=== PATIENT | male | born 1995 | race Caucasian/White ===

== ENCOUNTER 2017-09-22 13:31 | Emergency (ER) | payer OTHER ==
[~2017-09-22] VITALS: Ht 175.3 cm; Wt 66.0 kg
[~2017-09-22 13:31] MED LIST: AMOXICILLIN500 MG OR; NO HOME MEDS; ZOFRAN ODT4 MG PO
[2017-09-22] MEDS ORDERED: TRAMADOL HCL50 MG PO (13:50)
[2017-09-22] MEDS ORDERED: AMOXICILLIN500 MG PO (13:50)
[2017-09-22 15:18] LABS: HEMATOCRIT 42.7 % (39.0-50.0); HEMOGLOBIN 15.5 g/dl (14.0-18.0); IMMATURE GRANULOCYTES 0.4 % (0.0-1.0); MEAN CELL VOLUME 85.4 fL CALC (80.0-100.0); MEAN CORPUSCULAR HGB CONC 36.3 g/L CALC (32.0-36.0); NEUT# 7.36 thou/uL (1.82-7.42); RED CELL DISTRI WIDTH 11.9 % (11.5-15.5)
[2017-09-22 15:35] LABS: ALBUMIN 4.5 g/dL (3.2-5.0); ALKALINE PHOSPHATASE 57 u/l (38-126); ANION GAP 15 (6-22 (CALC)); BILIRUBIN, TOTAL 1.7 mg/dL (0.0-1.4); BUN 15 mg/dL (9-20); BUN/CREATININE RATIO 19 (12-20 (CALC)); CALCIUM 9.6 mg/dL (8.4-10.2); CARBON DIOXIDE 28 mmol/l (22-30); CHLORIDE 102 mmol/l (95-108); CREATININE 0.8 mg/dL (0.7-1.3); GFR > 60 ML/MIN (>=60 (CALC)); GFR FOR AFR.AMER. > 60 ML/MIN (>=60 (CALC)); GLUCOSE 106 mg/dL (75-110); POTASSIUM 4.6 mmol/l (3.5-5.1); SGOT/AST 25 u/l (17-59); SGPT/ALT 30 u/l (21-72); SODIUM 141 mmol/l (137-146); TOTAL PROTEIN 6.9 g/dL (6.3-8.2)
[2017-09-22] MEDS ORDERED: ZOFRAN ODT4 MG PO (16:05)
[2017-09-22 17:11] VITALS: BP 121/68
== END 2017-09-22 17:17 | disposition home or self-care (01) | DRG 159 ==
LOC: ED 13:31
PROVIDERS: Emergency Medicine
DX: K04.7 Periapical abscess without sinus (principal); J02.9 Acute pharyngitis, unspecified; R11.10 Vomiting, unspecified; R50.9 Fever, unspecified

== ENCOUNTER 2018-02-23 12:41 | Emergency (ER) | payer OTHER ==
[~2018-02-23] VITALS: Ht 175.3 cm; Wt 64.8 kg
[~2018-02-23 12:41] MED LIST changes: +AMOXICILLIN500 MG PO; +TRAMADOL HCL50 MG PO
[2018-02-23 14:45] VITALS: BP 129/85
[2018-02-23] MEDS ORDERED: PENICILLN VK500 M1 PO (14:47)
[2018-02-23] MEDS ORDERED: MOTRIN400 MG PO (14:47)
== END 2018-02-23 14:45 | disposition home or self-care (01) | DRG 159 ==
LOC: ED 12:41
DX: K03.81 Cracked tooth (principal); F17.220 Nicotine dependence, chewing tobacco, uncomplicated

== ENCOUNTER 2022-01-21 08:32 | Emergency (ER) | payer SELFPAY ==
[~2022-01-21] VITALS: Ht 175.3 cm; Wt 91.0 kg
[~2022-01-21 08:32] MED LIST changes: +MOTRIN400 MG PO; +PENICILLN VK500 M1 PO
[2022-01-21 08:42] VITALS: BP 130/82
[2022-01-21 08:45] VITALS: BP 127/79
[2022-01-21] MEDS ORDERED: OFLOXACIN0.3 % OD (08:59)
[2022-01-21] MEDS ORDERED: DOXYCYCL HYC100 M4 PO (08:59)
[2022-01-21 09:08] VITALS: BP 127/79
== END 2022-01-21 09:20 | disposition home or self-care (01) | DRG 125 ==
LOC: ED 08:32
DX: H00.013 Hordeolum externum right eye, unspecified eyelid (principal); F17.200 Nicotine dependence, unspecified, uncomplicated

== ENCOUNTER 2022-04-08 12:10 | Emergency (ER) | payer SELFPAY ==
[2022-04-08] VITALS (9 sets, daily range): BP systolic 105–123; BP diastolic 68–83
[~2022-04-08] VITALS: Ht 182.9 cm; Wt 86.3 kg
[~2022-04-08 12:10] MED LIST changes: +DOXYCYCL HYC100 M4 PO; +OFLOXACIN0.3 % OD
[2022-04-08 12:55] LABS: HEMATOCRIT 47.5 % (39.0-50.0); HEMOGLOBIN 16.4 g/dl (14.0-18.0); IMMATURE GRANULOCYTES 0.1 % (0.0-5.0); MEAN CELL VOLUME 89.3 fL CALC (80.0-100.0); MEAN CORPUSCULAR HGB 30.8 pG CALC (26.0-32.0); MEAN CORPUSCULAR HGB CONC 34.5 g/dL CAL (32.0-36.0); NEUT# 6.99 thou/uL (1.82-7.42); RED BLOOD COUNT 5.32 mill/uL (4.70-6.10); RED CELL DISTRI WIDTH 11.8 % (11.5-15.5)
[2022-04-08 13:18] LABS: ALBUMIN 4.6 g/dL (3.2-5.0); ALKALINE PHOSPHATASE 55 u/l (38-126); ANION GAP 13 (6-22 (CALC)); BUN 14 mg/dL (9-20); BUN/CREATININE RATIO 16 (12-20 (CALC)); CARBON DIOXIDE 25 mmol/l (22-30); CHLORIDE 105 mmol/l (95-108); CREATININE 0.8 mg/dL (0.7-1.3); GFR FOR AFR.AMER. > 60 ML/MIN (>=60 (CALC)); GFR OTHER RACES > 60 ML/MIN (>=60 (CALC)); LIPASE 76 u/l (23-300); POTASSIUM 4.2 mmol/l (3.5-5.1); SGOT/AST 27 u/l (17-59); SODIUM 139 mmol/l (137-146); TOTAL PROTEIN 7.7 g/dL (6.3-8.2)
[2022-04-08 13:29] LABS: BILIRUBIN, TOTAL 0.7 mg/dL (0.0-1.4)
[2022-04-08] MEDS ORDERED: ZOFRAN4 MG/TAB PO (13:59)
== END 2022-04-08 14:19 | disposition home or self-care (01) | DRG 392 ==
LOC: ED 12:10
PROVIDERS: Family Medicine
DX: K52.9 Noninfective gastroenteritis and colitis, unspecified (principal); F17.200 Nicotine dependence, unspecified, uncomplicated; Z20.822 Contact with and (suspected) exposure to COVID-19

== ENCOUNTER 2022-06-29 11:32 | Emergency (ER) | payer BC ==
[~2022-06-29] VITALS: Ht 182.9 cm; Wt 86.3 kg
[~2022-06-29 11:32] MED LIST changes: +ZOFRAN4 MG/TAB PO
[2022-06-29 12:51] LABS: HEMATOCRIT 40.5 % (39.0-50.0); HEMOGLOBIN 14.7 g/dl (14.0-18.0); IMMATURE GRANULOCYTES 0.7 % (0.0-5.0); MEAN CELL VOLUME 84.9 fL CALC (80.0-100.0); MEAN CORPUSCULAR HGB 30.8 pG CALC (26.0-32.0); MEAN CORPUSCULAR HGB CONC 36.3 g/dL CAL (32.0-36.0); RED BLOOD COUNT 4.77 mill/uL (4.70-6.10); RED CELL DISTRI WIDTH 11.9 % (11.5-15.5)
[2022-06-29 12:52] LABS: NEUT# 10.96 thou/uL (1.82-7.42)
[2022-06-29] MEDS ORDERED: VIBRAMYCIN100 M2 PO (13:18)
[2022-06-29] MEDS ORDERED: TESSALON PERLE100 MG PO (13:18)
[2022-06-29 13:25] VITALS: BP 139/77
== END 2022-06-29 13:41 | disposition home or self-care (01) | DRG 203 ==
LOC: ED 11:32
PROVIDERS: Family Medicine
DX: J20.9 Acute bronchitis, unspecified (principal)